=== PATIENT | female | born 1975 | race Asian ===

== ENCOUNTER → 2017-11-19 | Outpatient (CLI) | payer OTHER | END | disposition home or self-care (01) | LOC: CFH 07:19 | PROVIDERS: ATTEND Internal Medicine Gastroenterology | DX: B18.1 Chronic viral hepatitis B without delta-agent (principal) | CPT/HCPCS: 76700 ==

== ENCOUNTER → 2018-06-01 | Outpatient (CLI) | payer OTHER ==
[~2018-06-01] MED LIST: GADOBUTROL 10 MMOL/10 ML VIAL ONE
== END | disposition home or self-care (01) ==
LOC: CFH 13:40
PROVIDERS: ATTEND Surgery
DX: N63.10 Unspecified lump in the right breast, unspecified quadrant (principal); Q83.9 Congenital malformation of breast, unspecified; N61.1 Abscess of the breast and nipple; Z80.3 Family history of malignant neoplasm of breast
CPT/HCPCS: 76641; 77065; 77066; 82565; A9585; C8908

== ENCOUNTER 2019-07-13 08:51 | Outpatient (CLI) | payer OTHER | END 2019-07-13 23:59 | disposition home or self-care (01) | LOC: CFH 08:51 | PROVIDERS: ATTEND Internal Medicine Gastroenterology | DX: B19.10 Unspecified viral hepatitis B without hepatic coma (principal); R63.5 Abnormal weight gain; Z88.0 Allergy status to penicillin | CPT/HCPCS: 76705 ==

== ENCOUNTER → 2020-01-18 | Outpatient (CLI) | payer OTHER | END | disposition home or self-care (01) | LOC: CFH 08:54 | PROVIDERS: ATTEND Internal Medicine Gastroenterology | DX: K76.0 Fatty (change of) liver, not elsewhere classified (principal); B18.1 Chronic viral hepatitis B without delta-agent; R63.5 Abnormal weight gain | CPT/HCPCS: 76700 ==

== ENCOUNTER → 2021-02-05 | Outpatient (CLI) | payer OTHER | END | disposition home or self-care (01) | LOC: CFH 13:05 | PROVIDERS: ATTEND Surgery | DX: Z12.31 Encounter for screening mammogram for malignant neoplasm of breast (principal) | CPT/HCPCS: 77063; 77067 ==